=== PATIENT | female | born 1970 | race Caucasian/White ===

== ENCOUNTER 2016-09-25 11:36 | Emergency (ER) | payer OTHER ==
[~2016-09-25] VITALS: Ht 167.6 cm; Wt 79.5 kg
[~2016-09-25 11:36] MED LIST: MELO-259 PO; METF500T4 PO; PREG75CA PO
[2016-09-25 11:53] VITALS: BP 142/90; PULSE 88; RESP 18; O2SAT 96
--- NOTE | 2016-09-25 12:21 | ED.REPORT ---
HPI-Abd Pain F 40 and Over Date of Service Sep 25, 2016 ED Provider: Cesar Solomon DO A 46 year old female patient with a history of kidney stones presents to ED complaining of lower back pain and dysuria. The patient states she has a known kidney stone in her ureter that is 3 mm in size. She states that she has passed stones up to 6 mm in size in the past. She is concerned that this stone may be "stuck." Patient has been prescribed Flomax and Oxycodone for pain by her regular doctor and has also taken ibuprofen. Patient denies any fever. Per nurse patient she saw Dr. Ashu jackson for CT where she was sent to ED due to the severity of her pain. Nursing Notes Stated Complaint: POSSIBLE KIDNEY STONES Chief Complaint: Female Abdominal Pain Nursing Notes Reviewed: Yes Allergies: Coded Allergies: No Known Allergies (Unverified , 08/11/16) Scheduled Meloxicam (Meloxicam) 7.5 Mg Tablet Unknown Dose PO DAILY Metformin (Metformin) 500 Mg Tablet Unknown Dose PO DAILY Pregabalin (Lyrica) 75 Mg Capsule 75 MG PO QPM Tamsulosin (Flomax) 0.4 Mg Capsule 0.4 MG PO DAILY Scheduled PRN Naproxen (Naproxen) 500 Mg Tab 500 MG PO BID PRN PRN For Pain General Time Seen by MD: 12:05 Chief Complaint Other (flank pain) Hx Obtained From: Patient Arrived By: Walk-in Sudden in Onset?: No Onset Occurred: More than a week ago... Symptom Duration: Since onset Progression since Onset: Gradually worsening Location: : Flank left: Flank right Quality: Painful Radiation: : Does not radiate Severity: Current: Severe Severity: Maximum: Severe Associated with: Reports: Dysuria Pertinent Negative: Pt denies other symptoms Recent Healthcare: Recent doctor visit, Recent hospitalization (Hospitalized August 11-2015) Similar Sx Previous: Yes Past Medical History Past Medical History Hx kidney stones for the last 18 years. Past Surgical History Patient has had surgical intervention for kidney stones in past. Smoking History Current Every Day Smoker Social History Other Social History: Local resident Ambulatory Status Independent Review of Systems Constitutional: Denies: Fever Female: Reports: Dysuria, Flank pain Complete sys rev & neg: except as marked. Physical Exam Vital Signs Vital Signs (First) Date Time Temp Pulse Resp B/P Pulse Ox O2 Delivery O2 Flow Rate FiO2 2/8/17 11:53 37.0 88 18 142/90 96 Room Air Initial VS: Reviewed Head / Eyes: Atraumatic, Normocephalic, PERRL ENT: Mucous membranes moist, Conjunctiva normal, No scleral icterus Neck: Supple, Non-tender, Full range of motion Lymphatic: No lymphadenopathy Extremities: Vascular intact, Neuro intact, No swelling, No tenderness Skin: Warm, Dry, No cyanosis Neurologic: Alert, Oriented, Nonfocal Psychiatric: Mood/affect normal, Behavior normal, Normal thought content General/Constitutional: Awake, Alert Respiratory / Chest: Atraumatic, Breath sounds NL, Breath sounds = bilat, No respiratory distress, No rales, No rhonchi, No wheezing, No stridor Cardiovascular: Heart rate NL, Regular rhythm, Heart sounds NL, No gallop, No murmurs, No rubs, Peripheral circulation NL Abdomen: Atraumatic, Soft, Non-tender, McBurney's non-tender, No guarding, No rebound, BS normoactive, No distention, No hernia, No palpable mass, No pulsatile mass Back: No midline vertebral tend mild left CVA tenderness. Interpretation & Diagnostics CT KUB IMPRESSION: 1. A 7 mm left ureteropelvic junction stone causing mild left hydronephrosis. In addition, there are 2-3 tiny 1 mm stones at the left uterovesical junction. 2. A 3 mm left uterovesical junction stone causing mild right hydronephrosis. 3. Small 1-2 mm punctate calculi in kidneys bilaterally. Dictated by: Ally Coronado M.D. on 09/25/2016 at 13:31 Lab Results Interpretation Result Diagram: 09/25/16 1210 09/25/16 1210 Test 09/25/16 12:10 09/25/16 12:37 White Blood Count 5.5th/mm3 (3.8-10.1) Red Blood Count 4.90mil/mm3 (3.90-5.20) Hemoglobin 15.2g/dL (12.0-15.6) Hematocrit 43.5% (35.0-46.0) Mean Corpuscular Volume 88.8fL (81-100) Mean Corpuscular Hemoglobin 31.0pg (27.0-35.0) Mean Corpuscular Hemoglobin Concent 34.9% (32.0-37.0) Red Cell Distribution Width 12.6% (12.3-15.4) Platelet Count 269bil/L (150-400) Neutrophils (%) (Auto) 54.1% (40-74) Lymphocytes (%) (Auto) 32.6% (14-46) Monocytes (%) (Auto) 6.4% (4-12) Eosinophils (%) (Auto) 6.2% (0-5) Basophils (%) (Auto) 0.5% (0-3) Sodium Level 138mEq/L (134-144) Potassium Level 3.8mEq/L (3.5-5.2) Chloride Level 99mEq/L (97-108) Carbon Dioxide Level 25mmol/L (18-29) Blood Urea Nitrogen 13mg/dL (6-24) Creatinine 0.63mg/dL (0.57-1.00) Estimat Glomerular Filtration Rate 146mL/min (>59) Glucose Level 122mg/dL (60-99) Calcium Level 9.6mg/dL (8.5-10.1) Magnesium Level 2.0mg/dL (1.6-2.6) Total Bilirubin 0.3mg/dL (0.0-1.2) Aspartate Amino Transf (AST/SGOT) 23U/L (0-50) Alanine Aminotransferase (ALT/SGPT) 22U/L (0-32) Alkaline Phosphatase 94U/L (25-150) Total Protein 7.7g/dL (6.4-8.4) Albumin 4.3g/dL (3.4-5.0) Lipase 28U/L (13-60) Hold Ware Top Tube Received (Received) Urine Color Straw (YELLOW) Urine Appearance Hazy (CLEAR,HAZY) Urine pH 7.5 (5.0-8.0) Urine Specific Clarence 1.010 (1.003-1.035) Urine Protein Negativemg/dL (NEG,TRACE) Urine Glucose (UA) Negativemg/dL (NEGATIVE) Urine Ketones Negativemg/dL (NEGATIVE) Urine Occult Blood Negative (NEGATIVE) Urine Nitrite Negative (NEGATIVE) Urine Bilirubin Negative (NEGATIVE) Urine Urobilinogen Normalmg/dL (NORMAL) Urine Leukocyte Esterase Negative (NEGATIVE) Urine RBC 0-2/hpf (0-2) Urine WBC 0-5/hpf (0-5) Urine Epithelial Cells Occasional/hpf (NONE-MOD) Urine Crystals None seen (NONE SEEN) Urine Bacteria Few/hpf (NONE-FEW) Urine Hyaline Casts None/lpf (NONE) Urine Granular Casts None seen (NONE SEEN) Urine Waxy Casts None seen (NONE SEEN) Urine Red Blood Cell Casts None seen (NONE SEEN) Urine White Blood Cell Casts None seen (NONE SEEN) Urine Mucus None seen (None Seen) Urine Trichomonas None seen (NONE SEEN) Urine Yeast None (NONE SEEN) Urinalysis Comment None Urine Culture Reflexed Not indicated CT Abd / Pelvis Interpretation IMPRESSION: 1. A 7 mm left ureteropelvic junction stone causing mild left hydronephrosis. In addition, there are 2-3 tiny 1 mm stones at the left uterovesical junction. 2. A 3 mm left uterovesical junction stone causing mild right hydronephrosis. 3. Small 1-2 mm punctate calculi in kidneys bilaterally. Dictated by: Ally Coronado M.D. on 09/25/2016 at 13:31 Approved by: Ally Coronado M.D. on 09/25/2016 at 14:06 Re-Eval/Medical Decision Med Decision/Clinical Course History of recurrent kidney stones no evidence of life-threatening pathology today and pain is improved and well controlled at the time of discharge. Given her complex history urology is contacted and agrees to follow her up. Additionally agrees that there is no emergent pathology. Return precautions given Source of Hx: Old records Re-Evaluation/Progress : Time of Eval: 15:18 Re-Evaluation/Progress Note: Rechecked the patient. Discussed plan for discharge. All questions were addressed. Consultation : Referral / Consult Name: Andres Wakefield MD Consulted With: Urology Call Returned at: 15:22 Lagging Machine Operator: Will see patient, Agrees with eval, Agrees with plan Note: Start Flomax, still folllowup in clinic Counseled Regarding: Diagnosis, Lab results, Need for follow-up, When/why to return to ED Discharge & Departure Primary Impression: Nephrolithiasis Disposition: Home Discharge Condition All VS Reviewed: Yes Condition: Stable Additional Instructions: You continue to have kidney stones though there are no signs of infection. Call your urologist today for close follow-up and ongoing pain management. Use naproxen and Flomax, in addition to your other medication. Return to the ER for high fever, persistent vomiting, or other concerns. Referrals: Breonna Velázquez MD (PCP) Nina Attestation Portions of this note were transcribed by Russell Odonnell. I, Dr. Solomon personally performed the history, physical exam and medical decision-making; I reviewed and confirmed the accuracy of the information in the transcribed note. Signed by: Nina Murphy, 09/25/2016 and 1530. copies to: Breonna Velázquez MD, Timothy S DO Sep 25, 2016 12:21 Russell Odonnell Sep 25, 2016 12:46 Marina Montez Sep 25, 2016 12:59
[2016-09-25 12:23] LABS: BASOPHILS % (AUTO) 0.5 % (0-3); EOSINOPHILS % (AUTO) 6.2 % (0-5); MONOCYTES % (AUTO) 6.4 % (4-12); Mean Corpuscular Volume 88.8 fL (81-100); NEUTROPHILS % (AUTO) 54.1 % (40-74); Platelet Count 269 bil/L (150-400)
[2016-09-25] MEDS ORDERED: 0.9% Sodium Chloride 1,000 ML IV ONE (12:24)
[2016-09-25] MEDS ORDERED: Ondansetron 2 mg/mL 2 mL Inj IVPUSH PRN (12:25)
[2016-09-25 12:58] LABS: APPEARANCE,URINE HAZY (CLEAR,HAZY); COLOR,URINE STRAW (YELLOW); OCCULT BLOOD,URINE NEGATIVE (NEGATIVE); PH,URINE 7.5 (5.0-8.0); UROBILINOGEN,URINE NORMAL (NORMAL)
--- NOTE | 2016-09-25 14:08 | DRSVH ---
PROCEDURE: CT KUB ([id number]) INDICATIONS: left flank pain, h/o obstructing stone TECHNIQUE: Noncontrast 5 mm thick sections acquired from the diaphragms to the symphysis. 5 mm thick coronal an d sagittal reformats were then performed. For radiation dose reduction, the following was used: aut omated exposure control, adjustment of mA and/or kV according to patient size. COMPARISON: [facility], CT, CT KUB, 08/11/2016, 22:54. FINDINGS: Image quality: Excellent. Lung bases: Lung bases are clear. Heart size is normal. Urinary system: There is a 7 mm calculus at the left ureteral pelvic junction. At the right ureterov esical junction, there is a 3 mm stone. There are 2-3 tiny 1 mm stones in the left UVJ. There is mild hydronephrosis bilaterally. There are small punctate renal calculi measuring 1-2 mm. Both kidneys ar e normal in size. Both ureters appear non-dilated throughout their expected courses. Bladder wall t hickness is normal; no calcified bladder stones. Other solid organs: Liver and spleen are normal in size. Gallbladder is normal. Pancreas is normal in contours. No adrenal nodules. Peritoneum and bowel: Unenhanced bowel loops demonstrate normal wall thickness and caliber. No free fluid or air. Nodes and vessels: No retroperitoneal or mesenteric adenopathy by size criteria. Aorta and inferior vena cava are normal in caliber. Abdominal wall: No ventral hernias. Pelvis: No free pelvic fluid. No inguinal hernias or adenopathy. Bones: No suspicious bony lesions. No vertebral body compression fractures. IMPRESSION: 1. A 7 mm left ureteropelvic junction stone causing mild left hydronephrosis. In addition, there are 2-3 tiny 1 mm stones at the left uterovesical junction. 2. A 3 mm left uterovesical junction stone causing mild right hydronephrosis. 3. Small 1-2 mm punctate calculi in kidneys bilaterally. Dictated by: Ally Coronado M.D. on 09/25/2016 at 13:31 Approved by: Ally Coronado M.D. on 09/25/2016 at 14:06
[2016-09-25] MEDS ORDERED: NPR500T PO (15:19)
[2016-09-25] MEDS ORDERED: TAMS0.4C98 PO (15:25)
[2016-09-25 15:32] VITALS: BP 134/71; PULSE 88; RESP 16; O2SAT 97
== END 2016-09-25 15:34 | disposition home or self-care (01) ==
LOC: SED 11:36
DX: N20.0 Calculus of kidney (principal); F17.200 Nicotine dependence, unspecified, uncomplicated; Z79.84 Long term (current) use of oral hypoglycemic drugs
CPT/HCPCS: 36415; 74176; 80053; 81000; 81025; 83690; 83735; 85025; 96361; 96374; 96375; 99285; J2405; J7030